=== PATIENT | male | born 1965 | race Caucasian/White ===

== ENCOUNTER 2017-06-11 09:57 | Day surgery (SDC) | payer BC ==
[2017-06-07 08:57] VITALS: BMI 31.0
[2017-06-11 10:19] VITALS: RESP 16; TEMP 98.4
[2017-06-11] MEDS ORDERED: LIDOCAINE 1% 20 ML VIAL (10MG/ML) FOR IV START INTRADERMA ONE (10:28)
[2017-06-11] MEDS: LACTATED RINGERS 1,000 ML IV SCH ×2 (10:28→10:32)
[2017-06-11] MEDS ORDERED: LIDOCAINE 1% INJ 10MG/ML (20 ML MDV) ONE (10:33)
[2017-06-11] MEDS ORDERED: PROPOFOL 10 MG/ML 20 ML VIAL IV ONE (10:33)
--- NOTE | 2017-06-11 10:52 | P.OP ---
Date of Procedure: 06/11/17 Preoperative Diagnosis: Screening for colon cancer Postoperative Diagnosis: Screening for colon cancer, normal colon Procedure(s) Performed: Colonoscopy Anesthesia: TC Surgeon: Bebo Khan Pathology: none sent Description of Procedure: The patient was brought to the endoscopy suite and placed in lateral decubitus position. IV sedation was given as per anesthesia team. A timeout was performed to verify correct patient and correct procedure.Perianal examination did not reveal any external hemorrhoids. Digital rectal examination was performed. It was normal. A well-lubricated endoscope was passed per rectally and was gradually advanced beyond the sigmoid colon, splenic flexure, transverse colon, hepatic flexure and cecum. The ileocecal valve was visualized. Scope was gradually withdrawn inspecting all the mucosal surfaces. There was no diverticulosis polyps masses tumors or vascular malformations Bowel prep was good. Retroflexed in the rectum and no enlarged internal hemorrhoids The scope was gradually withdrawn. Patient tolerated the procedure well and was taken to post anesthesia care unit in stable condition. Recommend repeat colonoscopy in 10 years
[2017-06-11 11:25] VITALS: BP 127/78; PULSE 63
== END 2017-06-11 11:27 | disposition home or self-care (01) ==
LOC: ORWHC2ENDO 09:57
PROVIDERS: ATTEND Surgery
DX: Z12.11 Encounter for screening for malignant neoplasm of colon (principal); I10 Essential (primary) hypertension; E78.5 Hyperlipidemia, unspecified; Z79.82 Long term (current) use of aspirin; Z79.899 Other long term (current) drug therapy
CPT/HCPCS: J2001; J2704; G0121; 45378